=== PATIENT | female | born 1950 | race Caucasian/White ===

== ENCOUNTER 2019-04-25 06:56 | Day surgery (SDC) | payer OTHER, SELFPAY ==
[~2019-04-25] VITALS: Ht 153 cm; Wt 60.0 kg
[~2019-04-25 06:56] MED LIST: ATOR40TA PO; ELIQUIS5 MG PO; GLIP10 PO; Glyburide5 MG PO; HYDCHL25 PO; IBUP600 PO; INSUGL100V SC; LIRA0.6P SC; LOSA25 PO; Lantus100 UNIT/1 SQ; METF500C PO; METO25ER PO; OMEP20ER PO; OMEPRAZOLE20 MG PO; Toprol Xl25 MG PO
--- NOTE | 2019-04-25 08:03 | NUR ---
04/25/19 0803 Kelvin Morelos History, Chart, Medications and Allergies reviewed before start of procedure.MONITOR INTACT WITH CONTINUOUS PULSE OXIMETRY AND INTERMITTENT BP.3-LEAD EKG REVIEWED WITH PHYSICIAN PRIOR TO START OF PROCEDURE.O2 VIA N/C INTACT THROUGHOUT SEDATION/PROCEDURE. Patient confirms NPO status and agrees with scheduled surgery.PATIENT DETERMINED TO BE ASA APPROPRIATE FOR PROPOFOL SEDATION PRIOR TO START OF PROCEDURE BY DR. NAPOLES.
--- NOTE | 2019-04-25 09:09 | NUR ---
Patient up to Ambulate independently. Gait steady. Discharge instructions reviewed with patient. Patient verbalizes understanding. Copy given to patient to take home. Discharged via wheelchair to private car for ride home.
== END 2019-04-25 22:40 | disposition home or self-care (01) ==
LOC: ORSCMMR 06:56 → ORD 08:00 → ORSCMMR 22:40
PROVIDERS: Internal Medicine Gastroenterology
PROC: 0DB98ZX Excision of Duodenum, Via Natural or Artificial Opening Endoscopic, Diagnostic (ICD-10-PCS; principal; 2019-04-25 08:00)
PROC: 0DB68ZX Excision of Stomach, Via Natural or Artificial Opening Endoscopic, Diagnostic (ICD-10-PCS; principal; 2019-04-25 08:00)
PROC: 0DBN8ZX Excision of Sigmoid Colon, Via Natural or Artificial Opening Endoscopic, Diagnostic (ICD-10-PCS; principal; 2019-04-25 08:00)
PROC: 0DB48ZX Excision of Esophagogastric Junction, Via Natural or Artificial Opening Endoscopic, Diagnostic (ICD-10-PCS; principal; 2019-04-25 08:00)
DX: R10.13 Epigastric pain (principal); R19.5 Other fecal abnormalities; K57.10 Diverticulosis of small intestine without perforation or abscess without bleeding; K21.9 Gastro-esophageal reflux disease without esophagitis; K63.5 Polyp of colon; K64.8 Other hemorrhoids; K57.30 Diverticulosis of large intestine without perforation or abscess without bleeding; I48.91 Unspecified atrial fibrillation; I10 Essential (primary) hypertension; E11.9 Type 2 diabetes mellitus without complications; E78.00 Pure hypercholesterolemia, unspecified; Z95.0 Presence of cardiac pacemaker; Z79.01 Long term (current) use of anticoagulants; Z79.4 Long term (current) use of insulin; Z79.899 Other long term (current) drug therapy
CPT/HCPCS: 82947; 88305; 88342; J2704; J7120

== ENCOUNTER 2019-12-09 11:16 | Day surgery (SDC) | payer OTHER ==
[~2019-12-09] VITALS: Ht 149.9 cm; Wt 62.0 kg
[~2019-12-09 11:16] MED LIST changes: +ALBU90OI INH
--- NOTE | 2019-12-09 14:35 | NUR ---
PT TO RECOVERY POST PROCEDURE. PT IS DROWSY, BUT EASILY ROUSABLE, CONVERSING APPROPRIATELY. PT REPORTS MIN DISCOMFORT TO PACEMAKER SITE 2/10, ACHEY IN CHARCTER; DENIES THE NEED FOR MEDICATION. PT DENIES SOB OR NAUSEA. MONITOR V PACED, B/P 125/60, AFEBRILE, SPO2 96% RA. L CHEST: PACEMAKER SITE NO SWELLING/HEMATOMA, TELFA AND TEGADERM DRSG INTACT. PT TAKING SIPS OF H2o WITHOUT PROBLEM.
--- NOTE | 2019-12-09 16:10 | NUR ---
PTS DAUGHTERS HERE, UPDATED.
--- NOTE | 2019-12-09 16:44 | NUR ---
PT TOOK LUNCH WITHOUT PROBLEM. PT AMB TO BATHROOM, VOIDED QS; SITE UNCHANGED WITH ACTIVITY. PT'S DAUGHTER ASSISTING PT TO GET DRESSED; IV REMOVED-CANNULA INTACT.
--- NOTE | 2019-12-09 16:58 | NUR ---
PT AND DAUGHTERS RECEIVED DISCHARGE INSTRUCTIONS, MED LIST AND AFTER CARE INSTRUCTIONS; VERBALIZED GOOD UNDERSANDING. PT LEFT WITH DAUGHTERS VIA W/C, CONDITION STABLE.
== END 2019-12-09 16:58 | disposition home or self-care (01) ==
LOC: MHTC 11:16
DX: Z45.010 Encounter for checking and testing of cardiac pacemaker pulse generator [battery] (principal); I10 Essential (primary) hypertension; E78.5 Hyperlipidemia, unspecified; E11.9 Type 2 diabetes mellitus without complications; Q21.1 Atrial septal defect; Z79.4 Long term (current) use of insulin; Z79.01 Long term (current) use of anticoagulants; Z79.899 Other long term (current) drug therapy
CPT/HCPCS: 33228; 99152; 99153; C1785; J0690; J1644; J2250; J3010; J7040

== ENCOUNTER 2023-12-11 14:24 | Emergency (ER) | payer OTHER ==
[~2023-12-11] VITALS: Ht 149.9 cm; Wt 52.2 kg
[2023-12-11 14:31] VITALS: BP 157/50
== END 2023-12-11 15:48 | disposition home or self-care (01) ==
LOC: ER 14:24
DX: S06.0X0A Concussion without loss of consciousness, initial encounter (principal); S01.80XA Unspecified open wound of other part of head, initial encounter; S81.001A Unspecified open wound, right knee, initial encounter; Z79.01 Long term (current) use of anticoagulants; I48.91 Unspecified atrial fibrillation; E11.9 Type 2 diabetes mellitus without complications; E78.00 Pure hypercholesterolemia, unspecified; Z95.0 Presence of cardiac pacemaker; Z79.4 Long term (current) use of insulin; Z79.84 Long term (current) use of oral hypoglycemic drugs; Z79.899 Other long term (current) drug therapy; W18.39XA Other fall on same level, initial encounter; Y92.810 Car as the place of occurrence of the external cause
CPT/HCPCS: 70450; 99283-25

== ENCOUNTER 2025-09-01 22:14 | Emergency (ER) | payer OTHER ==
[~2025-09-01] VITALS: Ht 149.9 cm; Wt 46.7 kg
[2025-09-01 22:55] LABS: BASOPHILS ABSOLUTE AUTO 0.04 K/mm3 (0.00-0.23); BASOPHILS PERCENT AUTO 0 % (0-2); EOSINOPHILS ABSOLUTE AUTO 0.32 K/mm3 (0.00-0.68); EOSINOPHILS PERCENT AUTO 3 % (0-6); Hematocrit 43.7 % (33.0-51.0); Hemoglobin 14.8 g/dL (11.5-16.0); IMMATURE GRAN ABSOLUTE AUTO 0.03 K/mm3 (0.00-0.10); IMMATURE GRAN PERCENT AUTO 0 % (0-1); LYMPHOCYTES ABSOLUTE AUTO 1.35 K/mm3 (0.84-5.20); LYMPHOCYTES PERCENT AUTO 14 % (21-46); MONOCYTES ABSOLUTE AUTO 0.73 K/mm3 (0.16-1.47); MONOCYTES PERCENT AUTO 8 % (4-13); Mean Corpuscular HGB Conc 33.9 g/dL (31.5-36.5); Mean Corpuscular Volume 88 fL (80-100); NEUTROPHILS ABSOLUTE AUTO 7.24 K/mm3 (1.96-9.15); NEUTROPHILS PERCENT AUTO 75 % (41-73); NRBC ABSOLUTE 0.00 K/mm3 (0.00-0.02); NRBC Auto 0.0 /100 WBC (0.0-0.2); Platelet Count 172 K/mm3 (150-400); RDW Coefficient Variation 13.5 % (11.7-14.2); RDW Standard Deviation 43.0 fL (35.1-46.3)
[2025-09-01 23:13] LABS: Alanine Aminotransfer (ALT/SGP 44.0 U/L (12-78); Albumin, Blood 4.1 g/dL (3.4-5.0); Albumin/Globulin Ratio 1.5 (0.8-1.8); Anion Gap 9.0 mmol/L (3-11); Aspartate Aminotrans (AST/SGOT 32.0 U/L (12-37); Bilirubin, Total 0.9 mg/dL (0.1-1.0); Blood Urea Nitrogen 15.0 mg/dL (8-24); CO2, Blood 26.0 mmol/L (21-32); Calcium, Blood 8.9 mg/dL (8.5-10.1); Chloride, Blood 109.0 mmol/L (98-108); Creatinine, Blood 0.4 mg/dL (0.40-1.00); Globulin, Blood 2.8 g/dL (2.2-4.0); Glucose, Blood 133.0 mg/dL (70-99); Potassium, Blood 4.1 mmol/L (3.5-5.5); Sodium, Blood 140.0 mmol/L (136-145); Total Protein, Blood 6.9 g/dL (6.4-8.2)
[2025-09-02] MEDS ORDERED: NS 1,000 ML IV SCH ×2 (00:40→02:00)
[2025-09-02] MEDS ORDERED: Ondansetron HCl 2 MG / ML 2ML Vial IV ONE (00:40)
[2025-09-02 01:11] LABS: Source, Urine Clean Catch
[2025-09-02 01:29] LABS: Bilirubin, Urine Neg (Neg); Glucose Qualitative, Urine 4+ (Neg); Ketones, Urine 3+ (Neg); Leukocyte Esterase, Urine 1+ (Neg); Protein, Urine Neg (Neg); Specific Gravity, Urine 1.015 (1.003-1.022); Urobilinogen, Urine NORM (Normal)
[2025-09-02 01:54] LABS: Color, Urine Yellow (P-Yellow)
[2025-09-02 01:55] LABS: Red Blood Cells, Urine 0-2 /hpf (0-2)
[2025-09-02] MEDS ORDERED: ONDA4ODT MM (02:05)
[2025-09-02 03:47] VITALS: BP 120/61
== END 2025-09-02 03:52 | disposition home or self-care (01) ==
LOC: ER 22:14
PROVIDERS: Emergency Medicine
DX: R07.89 Other chest pain (principal); E86.0 Dehydration; R53.1 Weakness; I10 Essential (primary) hypertension; I48.91 Unspecified atrial fibrillation; E11.9 Type 2 diabetes mellitus without complications; Z79.4 Long term (current) use of insulin; Z79.899 Other long term (current) drug therapy
CPT/HCPCS: 71046; 80053; 81001; 83605; 83690; 84484; 85025; 93005; 93010; 96361; 96374; 99285-25; J2405; J7030